=== PATIENT | female | born 1955 | race Caucasian/White ===

== ENCOUNTER 2018-05-24 12:28 | Emergency (ER) | payer MEDICARE ==
--- NOTE | 2018-05-24 13:14 | RAD ---
THREE VIEWS RIGHT SHOULDER: Comparison: None. History: Pain after injury. FINDINGS: Three views of the right shoulder shows a comminuted fracture in the mid portion of the right clavicl e. No dislocation is seen. Visualized right thorax is unremarkable. IMPRESSION: Right clavicle fracture. POS: [facility]
== END 2018-05-24 13:46 | disposition home or self-care (01) ==
LOC: BURERS 12:28
DX: S42.011A Anterior displaced fracture of sternal end of right clavicle, initial encounter for closed fracture (principal); F32.9 Major depressive disorder, single episode, unspecified; Z79.899 Other long term (current) drug therapy; W01.0XXA Fall on same level from slipping, tripping and stumbling without subsequent striking against object, initial encounter

== ENCOUNTER 2019-04-16 10:04 | Emergency (ER) | payer MEDICARE, BC ==
[2019-04-16] MEDS ORDERED: Lidocaine 1% PF 5 ML VIAL ONE (10:21)
[2019-04-16] MEDS ORDERED: Triple Antibiotic Oint 1 GM Packet ONE (10:35)
== END 2019-04-16 10:30 | disposition home or self-care (01) ==
LOC: BURERS 10:04
DX: S61.011A Laceration without foreign body of right thumb without damage to nail, initial encounter (principal); W26.8XXA Contact with other sharp object(s), not elsewhere classified, initial encounter
CPT/HCPCS: 12002; J2001